=== PATIENT | female | born 1945 | race Caucasian/White ===

== ENCOUNTER 2021-11-18 09:07 | Outpatient (CLI) | payer MEDICARE, BC | END 2021-11-18 09:08 | disposition home or self-care (01) | LOC: CSHMAMMO 09:07 | PROVIDERS: ATTEND Internal Medicine | DX: Z12.31 Encounter for screening mammogram for malignant neoplasm of breast (principal) | CPT/HCPCS: 77063; 77067 ==

== ENCOUNTER 2021-12-18 09:37 | Observation (INO) | payer MEDICARE, BC ==
[2021-12-18 10:21] LABS: #Eosinphils 0.1 10x3/uL (0.0-0.5); #Monocytes 0.7 10x3/uL (0.0-1.1); #Neutrophils 8.1 10x3/uL (1.5-8.4); %Basophils 0.4 % (0.0-2.0); %Eosinophils 0.5 % (0.0-6.0); %Lymphocytes 11.8 % (18.0-47.0); %Monocytes 6.7 % (0.0-10.0); %Neutrophils 80.3 % (40.0-75.0); Hemoglobin 15.2 g/dL (12.0-15.5); Mean Corpuscular HGB CONC 33.7 g/dL (32.0-36.0); Platelet Count 255 10x3/uL (150-450); RBC Distribution Width 12.9 % (11.5-14.5); Red Blood Cell (RBC) Count 5.07 10x6/uL (3.90-5.03); White Blood Cell (WBC) Count 10.1 10x3/uL (3.5-10.5)
[2021-12-18] MEDS ORDERED: Nitroglycerin 0.4 MG TAB 1 EACH ONE (10:33)
[2021-12-18] MEDS ORDERED: Aspirin Chewable 81 MG TAB ONE (10:33)
[2021-12-18 10:41] LABS: ALT (SGPT) 18 U/L (8-55); AST (SGOT) 19 U/L (5-34); Albumin 4.4 g/dL (3.4-4.8); Alkaline Phosphatase 92 U/L (40-110); Anion Gap 13 mmol/L (10-20); BUN (Urea Nitrogen) 12 mg/dL (9.8-20.1); Bilirubin, Total 0.5 mg/dL (0.2-1.2); Calc. Creatinine Clearance 0 mL/min (70-130); Calcium 9.8 mg/dL (7.8-10.44); Carbon Dioxide 28 mmol/L (23-31); Chloride 105 mmol/L (98-107); Estimated GFR 73; Globulin 2.4 g/dL (2.4-3.5); Glucose 242 mg/dL (83-110); Lipase 20 U/L (8-78); Potassium 4.1 mmol/L (3.5-5.1); Protein, Total 6.8 g/dL (5.8-8.1); Sodium 142 mmol/L (136-145)
[2021-12-18] MEDS ORDERED: Nitroglycerin 0.4 MG TAB (25 Tab Bottle) SL PRN (11:39)
[2021-12-18 12:04] LABS: Magnesium 1.9 mg/dL (1.6-2.6)
[2021-12-18 12:09] LABS: SARS-CoV-2 NAA Rapid Test Not Detected (NotDetected)
[2021-12-18] MEDS ORDERED: hydrALAZINE 20 MG/ML VIAL SLOW IVP PRN (12:37)
[2021-12-18 13:29] LABS: Troponin I Less than 0.010 ng/mL (< 0.028)
[2021-12-18 13:42] VITALS: BMI 24.5
[2021-12-18] MEDS ORDERED: Dextrose 50% Abboject 50 ML SYRINGE SLOW IVP PRN (15:11)
[2021-12-18] MEDS ORDERED: HumaLOG 300 UNITS/3 ML VIAL SC PRN (15:11)
[2021-12-18] MEDS ORDERED: Dextrose 5% in Water 1,000 ML IV PRN (15:11)
[2021-12-18 16:38] LABS: Troponin I Less than 0.010 ng/mL (< 0.028)
[2021-12-18] MEDS: HumaLOG 300 UNITS/3 ML VIAL SC PRN (17:57)
[2021-12-18] MEDS: Famotidine 20 MG TAB PO SCH (20:44)
[2021-12-19 06:08] LABS: #Basophils 0.1 10x3/uL (0.0-0.2); #Eosinphils 0.2 10x3/uL (0.0-0.5); #Monocytes 0.8 10x3/uL (0.0-1.1); #Neutrophils 5.1 10x3/uL (1.5-8.4); %Basophils 0.7 % (0.0-2.0); %Eosinophils 2.1 % (0.0-6.0); %Lymphocytes 19.6 % (18.0-47.0); %Monocytes 10.2 % (0.0-10.0); %Neutrophils 66.9 % (40.0-75.0); Anion Gap 12 mmol/L (10-20); BUN (Urea Nitrogen) 14 mg/dL (9.8-20.1); Calc. Creatinine Clearance 63 mL/min (70-130); Carbon Dioxide 24 mmol/L (23-31); Chloride 109 mmol/L (98-107); Estimated GFR 86; Glucose 143 mg/dL (83-110); Hemoglobin 13.7 g/dL (12.0-15.5); Mean Corpuscular HGB CONC 33.9 g/dL (32.0-36.0); Mean Corpuscular Hemoglobin 30.1 pg (27.0-33.0); Mean Corpuscular Volume 88.8 fl (81.6-98.3); Mean Platelet Volume 9.4 fl (7.4-10.4); Platelet Count 252 10x3/uL (150-450); Potassium 4.2 mmol/L (3.5-5.1); RBC Distribution Width 13.1 % (11.5-14.5); Red Blood Cell (RBC) Count 4.55 10x6/uL (3.90-5.03); Sodium 141 mmol/L (136-145); White Blood Cell (WBC) Count 7.6 10x3/uL (3.5-10.5)
[2021-12-19] MEDS: Famotidine 20 MG TAB PO SCH (08:01)
[2021-12-19] MEDS ORDERED: Aspirin Chewable 81 MG TAB PO SCH (09:00)
[2021-12-19] MEDS: HumaLOG 300 UNITS/3 ML VIAL SC PRN (13:11)
[2021-12-19 17:03] VITALS: BP 131/60; TEMP 98.2
[2021-12-20] MEDS ORDERED: Lisinopril 10 MG TAB PO SCH (09:00)
== END 2021-12-19 18:15 | disposition home or self-care (01) ==
LOC: CSHERS 09:37 → CSHERHOLD 11:55 → INTOOBSV 11:55 → CSHTELE 13:20
PROVIDERS: ADMIT Family Medicine; ATTEND Internal Medicine
DX: R07.89 Other chest pain (principal); R06.02 Shortness of breath; I11.9 Hypertensive heart disease without heart failure; I49.3 Ventricular premature depolarization; E78.5 Hyperlipidemia, unspecified; E11.9 Type 2 diabetes mellitus without complications; Z79.4 Long term (current) use of insulin; Z79.82 Long term (current) use of aspirin; Z79.899 Other long term (current) drug therapy; Z88.2 Allergy status to sulfonamides; Z91.018 Allergy to other foods; Z98.890 Other specified postprocedural states
CPT/HCPCS: 71045; 80048; 82962 ×2; 83690; 83735; 84484 ×2; 85025; 93005; 93306; 94760 ×2; 99285; U0002; 36415; 36416; 80053; 84443; 96374; G0378; J0360; J1815

== ENCOUNTER 2022-07-21 09:21 | Outpatient (CLI) | payer MEDICARE, BC | END 2022-07-21 09:22 | disposition home or self-care (01) | LOC: CSHRAD 09:21 | PROVIDERS: ATTEND Internal Medicine | DX: M47.816 Spondylosis without myelopathy or radiculopathy, lumbar region (principal); M51.36 Other intervertebral disc degeneration, lumbar region | CPT/HCPCS: 72100 ==

== ENCOUNTER 2022-12-24 13:00 | Outpatient (CLI) | payer MEDICARE, BC | END 2022-12-24 13:01 | disposition home or self-care (01) | LOC: CSHMAMMO 13:00 | PROVIDERS: ATTEND Internal Medicine | DX: Z12.31 Encounter for screening mammogram for malignant neoplasm of breast (principal) | CPT/HCPCS: 77063; 77067 ==

== ENCOUNTER 2024-01-25 14:14 | Outpatient (CLI) | payer MEDICARE | END 2024-01-25 14:15 | disposition home or self-care (01) | LOC: CSHMAMMO 14:14 | PROVIDERS: ATTEND Internal Medicine | DX: Z12.31 Encounter for screening mammogram for malignant neoplasm of breast (principal) | CPT/HCPCS: 77063; 77067 ==

== ENCOUNTER 2024-07-11 09:51 | Outpatient (CLI) | payer MEDICARE | END 2024-07-11 09:52 | disposition home or self-care (01) | LOC: CSHRAD 09:51 | PROVIDERS: ATTEND Internal Medicine | DX: M25.532 Pain in left wrist (principal); M89.8X4 Other specified disorders of bone, hand ==